=== PATIENT | female | born 1935 | race Caucasian/White ===

== ENCOUNTER 2016-04-06 15:15 | Emergency (ER) | payer MEDICARE, OTHER ==
[~2016-04-06] VITALS: Ht 162.6 cm; Wt 52.5 kg
[2016-04-06 15:42] VITALS: BP 158/93; PULSE 94; RESP 16; TEMP 99.2; O2SAT 98
[2016-04-06] MEDS ORDERED: SODIUM CHLORIDE 0.9% FLUSH 5 ML FLUSH IVF PRN (16:15)
--- NOTE | 2016-04-06 16:15 | PD ---
HPI Chief Complaint: General Weakness Time Seen by Provider: 15:59 Travel History International Travel<30 days: No Contact w/Intl Traveler<30days: No Traveled to known affect area: No History of Present Illness HPI 80-year-old female with history of hypertension here for evaluation of generalized malaise and generalized weakness. The patient flew into [place] yesterday from [place], and plans to stay here for 10 days with her friend/ cousin. At around noon today the patient noted that she wasn't feeling well. She decided to eat lunch even though she wasn't hungry. She has somewhat of a postnasal drip. She denies cough. No fevers. No nausea or vomiting. No abdominal pain. No chest pain or dyspnea. PFSH Past Medical History Glaucoma: Yes Hypertension: Yes Influenza Vaccination: Yes ?: Not LMP: MENOPAUSAL Past Surgical History Abdominal Surgery: Yes (PERFORATED DUODENUM) Eye Surgery: Yes (CATARACTS) Social History Alcohol Use: Yes (1-2 ELENITA EVENING) Tobacco Use: No Substance Use: No Allergies-Medications (Allergen,Severity, Reaction): Coded Allergies: No Known Allergies (Unverified , 04/06/16) Reported Meds & Prescriptions Reported Meds & Active Scripts Active Reported Trusopt Opth Drops (Dorzolamide HCl) 2% Soln 1 Drop EACH EYE TID Hydrochlorothiazide 25 Mg Tab 25 Mg PO DAILY Review of Systems Except as stated in HPI: all other systems reviewed are Neg Physical Exam Narrative GENERAL: Well-developed, well-nourished, comfortable, no acute distress. SKIN: Warm and dry. No rash. HEAD: Atraumatic. Normocephalic. EYES: Pupils equal and round. No scleral icterus. No injection or drainage. ENT: No nasal bleeding or discharge. Mucous membranes pink and moist. Bilateral hearing aids in place. NECK: Trachea midline. No JVD. No nuchal rigidity. CARDIOVASCULAR: Regular rate and rhythm. RESPIRATORY: No accessory muscle use. Clear to auscultation. Breath sounds equal bilaterally. GASTROINTESTINAL: Abdomen soft, non-tender, nondistended. MUSCULOSKELETAL: No obvious deformities. No clubbing. No cyanosis. No edema. NEUROLOGICAL: Awake and alert. No obvious cranial nerve deficits. Motor grossly within normal limits. Normal speech. PSYCHIATRIC: Appropriate mood and affect; insight and judgment normal. Data Data Last Documented VS Vital Signs Date Time Temp Pulse Resp B/P Pulse Ox O2 Delivery O2 Flow Rate FiO2 04/06/16 17:00 78 14 173/80 97 04/06/16 15:42 99.2 Orders Complete Blood Count With Diff (04/06/16 16:09) Comprehensive Metabolic Panel (04/06/16 16:09) Urinalysis - C+S If Indicated (04/06/16 16:09) Iv Access Insert/Monitor (04/06/16 16:09) Ecg Monitoring (04/06/16 16:09) Oximetry (04/06/16 16:09) Sodium Chloride 0.9% Flush (Ns Flush) (04/06/16 16:15) Electrocardiogram (04/06/16 16:09) Chest, Single Ap (04/06/16 16:09) Influenzae A/B Antigen (04/06/16 16:09) Thyroid Stimulating Hormone (04/06/16 16:09) Ckmb (Isoenzyme) Profile (04/06/16 16:35) Troponin I (04/06/16 16:35) Labs Laboratory Tests Test 04/06/16 04/06/16 16:15 16:50 White Blood Count 5.4 TH/MM3 Red Blood Count 3.92 MIL/MM3 Hemoglobin 12.7 GM/DL Hematocrit 37.1 % Mean Corpuscular Volume 94.7 FL Mean Corpuscular Hemoglobin 32.5 PG Mean Corpuscular Hemoglobin 34.3 % Concent Red Cell Distribution Width 11.2 % Platelet Count 268 TH/MM3 Mean Platelet Volume 7.7 FL Neutrophils (%) (Auto) 67.0 % Lymphocytes (%) (Auto) 21.0 % Monocytes (%) (Auto) 11.1 % Eosinophils (%) (Auto) 0.5 % Basophils (%) (Auto) 0.4 % Neutrophils # (Auto) 3.7 TH/MM3 Lymphocytes # (Auto) 1.1 TH/MM3 Monocytes # (Auto) 0.6 TH/MM3 Eosinophils # (Auto) 0.0 TH/MM3 Basophils # (Auto) 0.0 TH/MM3 CBC Comment DIFF FINAL Differential Comment Sodium Level 133 MEQ/L Potassium Level 3.6 MEQ/L Chloride Level 99 MEQ/L Carbon Dioxide Level 25.1 MEQ/L Anion Gap 9 MEQ/L Blood Urea Nitrogen 17 MG/DL Creatinine 0.80 MG/DL Estimat Glomerular Filtration 69 ML/MIN Rate Random Glucose 90 MG/DL Calcium Level 8.4 MG/DL Total Bilirubin 0.8 MG/DL Aspartate Amino Transf 20 U/L (AST/SGOT) Alanine Aminotransferase 16 U/L (ALT/SGPT) Alkaline Phosphatase 37 U/L Total Creatine Kinase 96 U/L Troponin I LESS THAN 0.02 NG/ML Total Protein 7.1 GM/DL Albumin 3.9 GM/DL Thyroid Stimulating Hormone 3.870 uIU/ML 3rd Gen Urine Collection Type CLEAN CATCH Urine Color YELLOW Urine Turbidity CLEAR Urine pH 7.0 Urine Specific [place] 1.011 Urine Protein NEG mg/dL Urine Glucose (UA) NEG mg/dL Urine Ketones NEG mg/dL Urine Occult Blood NEG Urine Nitrite NEG Urine Bilirubin NEG Urine Leukocyte Esterase TRACE Urine WBC 0-2 /hpf Microscopic Urinalysis Comment CULT NOT INDICATED Urine Collection Time 1650 MDM Medical Decision Making Medical Screen Exam Complete: Yes Emergency Medical Condition: Yes Interpretation(s) EKG: Sinus, rate 74, left axis deviation, normal intervals, Q waves in anterior and septal leads, no acute ischemic abnormality. Differential Diagnosis Influenza, viral illness, pneumonia, dehydration, UTI, PE unlikely Narrative Course Initial vital signs show heart rate 94, blood pressure 158/93, pulse ox 98% on room air, oral temp of 99.2F. Repeat vital signs show heart rate 78, blood pressure 173/80, pulse ox 97% on room air. CBC is unremarkable. CMP is unremarkable. Cardiac enzymes are negative. TSH is 3.87. UA shows trace leukocyte esterase, not suggestive of UTI. Influenza is negative. Chest x-ray shows no acute disease. The patient was made aware of all findings. She is resting comfortably. She is awake and alert, no distress. No focal deficits on exam. She is stable for discharge home with outpatient follow-up with her primary care physician when she returns to [place]. Her friend/cousins were present in the room and will take care of her at home. They were all informed on when she should return to the emergency department. The patient verbalizes understanding and agreement with plan. Diagnosis Primary Impression: Generalized weakness Referrals: Primary Care Physician 3 days Additional Instructions: Follow-up with your primary care physician when you return home. Stay hydrated with plenty of fluids. Return to the emergency department for worsening symptoms or any other concerns. Disposition: 01 DISCHARGE HOME Condition: Stable Paz,Stewart N MD Apr 06, 2016 16:15
[2016-04-06 16:36] LABS: AUTOMATED NEUTROPHIL # 3.7 TH/MM3 (1.8-7.7); BASOPHIL % 0.4 % (0.0-2.0); EOSINOPHIL % 0.5 % (0.0-4.0); HEMATOCRIT 37.1 % (35.0-46.0); HEMO FLAGS DIFF FINAL; LYMPHOCYTE # 1.1 TH/MM3 (1.0-4.8); MEAN CELL VOLUME 94.7 FL (80.0-100.0); MEAN CORPUSCULAR HEMOGLOBIN 32.5 PG (27.0-34.0); MEAN CORPUSCULAR HGB CONC 34.3 % (32.0-36.0); MONO % 11.1 % (0.0-8.0); PLATELET COUNT 268 TH/MM3 (150-450); RED BLOOD COUNT 3.92 MIL/MM3 (4.00-5.30); RED CELL DISTRIBUTION WIDTH 11.2 % (11.6-17.2); WHITE BLOOD COUNT 5.4 TH/MM3 (4.0-11.0)
[2016-04-06 16:46] LABS: CHLORIDE 99 MEQ/L (98-107); POTASSIUM 3.6 MEQ/L (3.5-5.1); SODIUM (NA) 133 MEQ/L (136-145)
--- NOTE | 2016-04-06 16:46 | RADHPO ---
EXAM DATE/TIME: 04/06/2016 16:19 [facility] COMPARISON: No previous studies available for comparison. INDICATIONS : Cough. MEDICAL HISTORY : None. SURGICAL HISTORY : None. ENCOUNTER: Initial ACUITY: 1 day PAIN SCORE: 0/10 LOCATION: Bilateral chest FINDINGS: A single view of the chest demonstrates the lungs to be symmetrically aerated without evidence of mas s, infiltrate or effusion. The cardiomediastinal contours are unremarkable. Osseous structures are intact. CONCLUSION: No acute disease. Juan Luis Fox MD FACR on April 06, 2016 at 16:45 Board Certified Radiologist. This report was verified electronically.
[2016-04-06 16:50] LABS: ANION GAP 9 MEQ/L (5-15); BICARBONATE 25.1 MEQ/L (21.0-32.0)
[2016-04-06 16:51] LABS: BLOOD UREA NITROGEN 17 MG/DL (7-18)
[2016-04-06 16:53] LABS: ALT (GPT) 16 U/L (10-53); AST (GOT) 20 U/L (15-37)
[2016-04-06 16:54] LABS: GLOMERULAR FILTRATION RATE 69 ML/MIN (>89)
[2016-04-06 16:55] LABS: TOTAL BILIRUBIN ADULT 0.8 MG/DL (0.2-1.0)
[2016-04-06 16:56] LABS: ALKALINE PHOSPHATASE 37 U/L (45-117)
[2016-04-06 17:00] VITALS: BP 173/80; PULSE 78; RESP 14; O2SAT 97
[2016-04-06 17:05] LABS: BLOOD, URINE NEG (NEG); GLUCOSE,URINE NEG (NEG); KETONE, URINE NEG (NEG); NITRITE,URINE NEG (NEG)
[2016-04-06 17:19] LABS: CREATINE KINASE 96 U/L (26-192)
[2016-04-06 17:33] LABS: METHOD OF COLLECTION CLEAN CATCH
[2016-04-06 17:34] LABS: COMMENT (UR) CULT NOT INDICATED; CULTURE IF INDICATED CULT NOT INDICATED; URINE COLOR YELLOW (YELLW/STRAW); WBC, URINE 0-2 /hpf (0-5)
[2016-04-06] MEDS ORDERED: HYDR25TA5 PO (17:43)
[2016-04-06] MEDS ORDERED: TRUS2SOL EACH EYE (17:43)
--- NOTE | 2016-04-07 05:03 | EKG ---
Date Performed: 04/06/2016 Time Performed: 16:30:02 PTAGE: 80 years EKG: Sinus rhythm Possible anteroseptal infarct - age undetermined Cannot rule out inferior myocardial infarction Abno rmal ECG NO PREVIOUS TRACING DOCTOR: Brock Aguila Interpretating Date/Time 04/07/2016 05:02:41
== END 2016-04-06 18:35 | disposition home or self-care (01) ==
LOC: PHED 15:15
DX: R53.1 Weakness (principal); I10 Essential (primary) hypertension
CPT/HCPCS: 71010; 80053; 81001; 82550; 84443; 84484; 85025; 87804; 93005

== ENCOUNTER 2016-04-07 11:39 | Emergency (ER) | payer MEDICARE, OTHER ==
[~2016-04-07] VITALS: Ht 165.1 cm; Wt 52.7 kg
[2016-04-07] VITALS (7 sets, daily range): BP systolic 123–150; BP diastolic 78–83; PULSE 69–80; RESP 16–18; TEMP 97.9; O2SAT 96–99
[~2016-04-07 11:39] MED LIST: HYDR25TA5 PO; TRUS2SOL EACH EYE
[2016-04-07] MEDS ORDERED: SODIUM CHLORIDE 0.9% FLUSH 5 ML FLUSH IVF PRN (13:00)
[2016-04-07] MEDS ORDERED: SODIUM CHLORID 0.9% 500 ML INJ 500 ML IV ONE (13:00)
--- NOTE | 2016-04-07 13:20 | RADHPO ---
EXAM DATE/TIME: 04/07/2016 13:10 [facility] COMPARISON: CHEST SINGLE AP, April 06, 2016, 16:19. INDICATIONS : Syncopal episode, weakness, shakes, headaches. MEDICAL HISTORY : Hypertension. SURGICAL HISTORY : None. ENCOUNTER: Initial ACUITY: 2 days PAIN SCORE: 0/10 LOCATION: chest FINDINGS: A single view of the chest demonstrates the lungs to be symmetrically aerated without evidence of mas s, infiltrate or effusion. Atherosclerotic changes are again noted in the aorta with calcification. The cardiomediastinal contours are unremarkable. Osseous structures are intact. There are multiple o verlying electrocardiogram leads. CONCLUSION: No acute disease. Dwaine Meyers MD on April 07, 2016 at 13:17 Board Certified Radiologist. This report was verified electronically.
--- NOTE | 2016-04-07 13:22 | RADHPO ---
EXAM DATE/TIME: 04/07/2016 13:10 [facility] COMPARISON: No previous studies available for comparison. INDICATIONS : Cephalgia. General weakness. RADIATION DOSE: 65.19 CTDIvol (mGy) MEDICAL HISTORY : Hypertension. SURGICAL HISTORY : None. ENCOUNTER: Initial ACUITY: 1 day PAIN SCALE: 1/10 LOCATION: cranial TECHNIQUE: Multiple contiguous axial images were obtained of the head. Using automated exposure control and adj ustment of the mA and/or kV according to patient size, radiation dose was kept as low as reasonably a chievable to obtain optimal diagnostic quality images. FINDINGS: CEREBRUM: The ventricles are normal for age. No evidence of midline shift, mass lesion, hemorrhage or acute in farction. No extra-axial fluid collections are seen. POSTERIOR FOSSA: The cerebellum and brainstem are intact. The 4th ventricle is midline. The cerebellopontine angle i s unremarkable. EXTRACRANIAL: The visualized portion of the orbits is intact. SKULL: The calvaria is intact. No evidence of skull fracture. CONCLUSION: Unremarkable exam. Dwaine Meyers MD on April 07, 2016 at 13:20 Board Certified Radiologist. This report was verified electronically.
[2016-04-07 13:34] LABS: AUTOMATED NEUTROPHIL # 3.2 TH/MM3 (1.8-7.7); BASOPHIL % 0.9 % (0.0-2.0); EOSINOPHIL % 0.4 % (0.0-4.0); HEMATOCRIT 37.6 % (35.0-46.0); HEMO FLAGS DIFF FINAL; LYMPH % 23.4 % (9.0-44.0); LYMPHOCYTE # 1.2 TH/MM3 (1.0-4.8); MEAN CELL VOLUME 94.1 FL (80.0-100.0); MEAN CORPUSCULAR HEMOGLOBIN 32.2 PG (27.0-34.0); MEAN CORPUSCULAR HGB CONC 34.2 % (32.0-36.0); MONO % 11.4 % (0.0-8.0); NEUT % 63.9 % (16.0-70.0); PLATELET COUNT 274 TH/MM3 (150-450); RED CELL DISTRIBUTION WIDTH 11.2 % (11.6-17.2)
[2016-04-07 13:41] LABS: CHLORIDE 96 MEQ/L (98-107); POTASSIUM 3.9 MEQ/L (3.5-5.1); SODIUM (NA) 130 MEQ/L (136-145)
[2016-04-07 13:45] LABS: ANION GAP 8 MEQ/L (5-15); BICARBONATE 25.8 MEQ/L (21.0-32.0); BLOOD UREA NITROGEN 15 MG/DL (7-18); MAGNESIUM 1.8 MG/DL (1.5-2.5)
[2016-04-07 13:46] LABS: APTT (PATIENT) 27.3 SEC (24.3-30.1); PROTHROMBIN TIME - PATIENT 11.2 SEC (9.8-11.6)
[2016-04-07 13:48] LABS: ALT (GPT) 15 U/L (10-53); AST (GOT) 18 U/L (15-37); GLOMERULAR FILTRATION RATE 69 ML/MIN (>89)
[2016-04-07 13:49] LABS: TOTAL BILIRUBIN ADULT 0.9 MG/DL (0.2-1.0)
[2016-04-07 13:50] LABS: ALKALINE PHOSPHATASE 34 U/L (45-117)
[2016-04-07 13:52] LABS: CREATINE KINASE 67 U/L (26-192)
--- NOTE | 2016-04-07 14:01 | PD ---
HPI Chief Complaint: General Weakness Time Seen by Provider: 12:47 Travel History International Travel<30 days: No Contact w/Intl Traveler<30days: No Traveled to known affect area: No History of Present Illness HPI Patient is a 80 year old female with history of hypertension who returns to the ER with c/o of generalized weakness. Patient reports that she was seen in the emergency room yesterday for similar symptoms, reports that she had labs as an x -ray of her chest, reports that "everything was normal." Patient reports that she thought that she had overall generalized weakness as she recently flew from [place] into [place] on Monday and is here for vacation with family members. Patient reports that she left the ER yesterday and did check to get some rest. Reports that she did have some chicken noodle soup last night, reports that she just feels not hungry and tired and just "bad." Reports that today, she has a slight headache rates as a 2 out of 10, reports that she did not take any medications for headache. Reports that she is no vision changes or blurry vision. She denies chest pain or shortness of breath. Patient denies abdominal pain, nausea or vomiting. Patient reports that she had a thorough evaluation yesterday and does not know why she feels so weak. Patient's family at bedside, reports that she does have history of hypertension , reports concerns for possible ACS causing her symptoms. Patient at this point has no nausea or vomiting or chest pain or shortness of breath. No history of coronary artery disease in the past. PFSH Past Medical History Hx Anticoagulant Therapy: Yes (ASA) Glaucoma: Yes Hypertension: Yes Immunizations Current: Yes ?: Not Past Surgical History Abdominal Surgery: Yes (PERFORATED DUODENUM) Eye Surgery: Yes (CATARACTS) Social History Alcohol Use: Yes (1-2 WINE IN EVENING) Tobacco Use: No Substance Use: No Allergies-Medications (Allergen,Severity, Reaction): Coded Allergies: No Known Allergies (Unverified , 04/07/16) Reported Meds & Prescriptions Reported Meds & Active Scripts Active Reported Trusopt Opth Drops (Dorzolamide HCl) 2% Soln 1 Drop EACH EYE TID Hydrochlorothiazide 25 Mg Tab 25 Mg PO DAILY Review of Systems General / Constitutional: No: Fever Eyes: No: Visual changes HENT: Positive: Headaches Cardiovascular: No: Chest Pain or Discomfort Respiratory: No: Shortness of Breath Gastrointestinal: No: Nausea, Vomiting, Abdominal Pain Genitourinary: No: Dysuria Musculoskeletal: Positive: Weakness, No: Pain Skin: No Rash Neurologic: No: Weakness Psychiatric: No: Depression Endocrine: No: Polydipsia Hematologic/Lymphatic: No: Easy Bruising Physical Exam Narrative GENERAL: nad, nontoxic SKIN: Warm and dry. HEAD: Atraumatic. Normocephalic. EYES: Pupils equal and round. No scleral icterus. No injection or drainage. ENT: No nasal bleeding or discharge. Mucous membranes pink and moist. NECK: Trachea midline. No JVD. CARDIOVASCULAR: Regular rate and rhythm. No murmur appreciated. RESPIRATORY: No accessory muscle use. Clear to auscultation. Breath sounds equal bilaterally. GASTROINTESTINAL: Abdomen soft, non-tender, nondistended. Hepatic and splenic margins not palpable. MUSCULOSKELETAL: No obvious deformities. No clubbing. No cyanosis. No edema. NEUROLOGICAL: Awake and alert. No obvious cranial nerve deficits. Motor grossly within normal limits. Normal speech. Cranial nerves to 12 grossly intact with no obvious deficits PSYCHIATRIC: Appropriate mood and affect; insight and judgment normal. Data Data Last Documented VS Vital Signs Date Time Temp Pulse Resp B/P Pulse Ox O2 Delivery O2 Flow Rate FiO2 04/07/16 16:00 75 16 97 Room Air 04/07/16 15:59 123/79 04/07/16 11:49 97.9 Orders Electrocardiogram (04/07/16 12:56) Ckmb (Isoenzyme) Profile (04/07/16 12:56) Complete Blood Count With Diff (04/07/16 12:56) Comprehensive Metabolic Panel (04/07/16 12:56) Magnesium (Mg) (04/07/16 12:56) Prothrombin Time / Inr (Pt) (04/07/16 12:56) Act Partial Throm Time (Ptt) (04/07/16 12:56) Troponin I (04/07/16 12:56) Chest, Single Ap (04/07/16 12:56) Ecg Monitoring (04/07/16 12:56) Bilateral Bp Monitoring (04/07/16 12:56) Iv Access Insert/Monitor (04/07/16 12:56) Oximetry (04/07/16 12:56) Sodium Chloride 0.9% Flush (Ns Flush) (04/07/16 13:00) Sodium Chlorid 0.9% 500 Ml Inj (Ns 500 M (04/07/16 13:00) Ct Brain W/O Iv Contrast(Rout) (04/07/16 12:56) Sodium Chlor 0.9% 1000 Ml Inj (Ns 1000 M (04/07/16 16:00) Labs Laboratory Tests Test 04/07/16 13:25 White Blood Count 5.0 TH/MM3 Red Blood Count 4.00 MIL/MM3 Hemoglobin 12.9 GM/DL Hematocrit 37.6 % Mean Corpuscular Volume 94.1 FL Mean Corpuscular Hemoglobin 32.2 PG Mean Corpuscular Hemoglobin 34.2 % Concent Red Cell Distribution Width 11.2 % Platelet Count 274 TH/MM3 Mean Platelet Volume 7.3 FL Neutrophils (%) (Auto) 63.9 % Lymphocytes (%) (Auto) 23.4 % Monocytes (%) (Auto) 11.4 % Eosinophils (%) (Auto) 0.4 % Basophils (%) (Auto) 0.9 % Neutrophils # (Auto) 3.2 TH/MM3 Lymphocytes # (Auto) 1.2 TH/MM3 Monocytes # (Auto) 0.6 TH/MM3 Eosinophils # (Auto) 0.0 TH/MM3 Basophils # (Auto) 0.0 TH/MM3 CBC Comment DIFF FINAL Differential Comment Prothrombin Time 11.2 SEC Prothromb Time International 1.0 RATIO Ratio Activated Partial 27.3 SEC Thromboplast Time Sodium Level 130 MEQ/L Potassium Level 3.9 MEQ/L Chloride Level 96 MEQ/L Carbon Dioxide Level 25.8 MEQ/L Anion Gap 8 MEQ/L Blood Urea Nitrogen 15 MG/DL Creatinine 0.80 MG/DL Estimat Glomerular Filtration 69 ML/MIN Rate Random Glucose 90 MG/DL Calcium Level 8.7 MG/DL Magnesium Level 1.8 MG/DL Total Bilirubin 0.9 MG/DL Aspartate Amino Transf 18 U/L (AST/SGOT) Alanine Aminotransferase 15 U/L (ALT/SGPT) Alkaline Phosphatase 34 U/L Total Creatine Kinase 67 U/L Troponin I LESS THAN 0.02 NG/ML Total Protein 6.9 GM/DL Albumin 3.9 GM/DL MDM Medical Decision Making Medical Screen Exam Complete: Yes Emergency Medical Condition: Yes Interpretation(s) EKG at 1338: Normal sinus rhythm at 68bpm, qt/qtc: 392/406, no acute changes - no change from ekg from yesterday Dr Aguila did read yesterdays ekg: possible anteroseptal infarct - age undetermined, cannot rule out inferior NM Vital Signs Date Time Temp Pulse Resp B/P Pulse Ox O2 Delivery O2 Flow Rate FiO2 04/07/16 12:49 75 16 100 Room Air 04/07/16 11:49 97.9 80 18 142/82 99 Differential Diagnosis ACS, CVA, intracranial hemorrhage, arrhythmia, electrolyte abnormality, dehydration Narrative Course Patient is a 80-year-old female who presents to emergency room with complaints of generalized weakness. Patient reports that she presents to emergency room after traveling from [place] to [place] on Monday. Reports that she has generalized symptoms and has no overt complaints except for mild headache which are similar to her previous headaches in the past. Patient's neuro exam is benign, CT head ordered for evaluation of possible intracranial hemorrhage versus mass which could cause her symptoms. CBC, BMP, cardiac enzymes also ordered for evaluation of her symptoms. Patient does have an abnormal EKG with possible anterior septal infarct which is age indeterminant, patient with no history of coronary disease or history of NM in the past. Consideration for possible cardiac etiology for symptoms Patient has been placed on a vehicle monitor technician, will continue to monitor patient. Patient re-evaluated, reports that she is not feeling any better. I reviewed all labs and studies with her and patient and family requested observation overnight. Discussed with patient and family that I have no grounds to admit to her to the hospital. Patient and family request that I call medicine service to see if i can have her admitted to hospital. Discussed that I will try to get her admitted overnight. Call made to to review case. Patient did not meet any observation criteria or admission criteria, requests the patient follow up with her primary care doctor as outpatient and refuses admission at this time. I reviewed my conversation with patient and family. Signs and symptoms of when to return to the emergency room was reviewed with patient and family. Patient will return to ER since return or persist Diagnosis Primary Impression: Generalized muscle weakness Additional Impression: Hyponatremia Patient Instructions: General Instructions Additional Instructions: Please follow-up with your primary care doctor as soon as possible Return to emergency room as needed Please return to emergency room if symptoms progress or worsen Disposition: 01 DISCHARGE HOME Condition: Stable Sunitha Sullivan DO Apr 07, 2016 14:01
[2016-04-07] MEDS ORDERED: SODIUM CHLOR 0.9% 1000 ML INJ 1,000 ML IV ONE (16:00)
--- NOTE | 2016-04-08 20:41 | EKG ---
Date Performed: 04/07/2016 Time Performed: 13:38:42 PTAGE: 80 years EKG: Sinus rhythm Inferior infarct - age undetermined Possible anteroseptal infarct - age undetermined When compared t o previous tracing, no significant change. Abnormal ECG PREVIOUS TRACING : 04/06/2016 16.30 DOCTOR: Arturo Gordillo Interpretating Date/Time 04/08/2016 20:39:53
== END 2016-04-07 17:29 | disposition home or self-care (01) ==
LOC: PHED 11:39
DX: M62.81 Muscle weakness (generalized) (principal); E87.1 Hypo-osmolality and hyponatremia; Z79.82 Long term (current) use of aspirin; I10 Essential (primary) hypertension
CPT/HCPCS: 70450; 71010; 80053; 82550; 83735; 84484; 85025; 85610; 85730; 93005; 96360; 96361; 99285; J7030; J7040

== ENCOUNTER 2016-04-10 03:29 | Emergency (ER) | payer MEDICARE, OTHER ==
[~2016-04-10] VITALS: Ht 165.1 cm; Wt 52.4 kg
[2016-04-10 03:38] VITALS: BP 134/82; PULSE 90; RESP 18; TEMP 98.5; O2SAT 98
[2016-04-10] MEDS ORDERED: ASPI1TAB69 PO (04:07)
[2016-04-10 04:10] VITALS: O2SAT 97
[2016-04-10] MEDS ORDERED: ONDANSETRON HCL 4 MG/2 ML VIAL IVP ONE (04:15)
[2016-04-10] MEDS ORDERED: SODIUM CHLORIDE 0.9% FLUSH 5 ML FLUSH IVF PRN (04:15)
[2016-04-10 04:27] LABS: AUTOMATED NEUTROPHIL # 3.2 TH/MM3 (1.8-7.7); BASOPHIL % 0.6 % (0.0-2.0); EOSINOPHIL # 0.1 TH/MM3 (0-0.4); EOSINOPHIL % 1.2 % (0.0-4.0); HEMATOCRIT 37.6 % (35.0-46.0); HEMO FLAGS DIFF FINAL; LYMPH % 13.8 % (9.0-44.0); LYMPHOCYTE # 0.7 TH/MM3 (1.0-4.8); MEAN CELL VOLUME 94.2 FL (80.0-100.0); MEAN CORPUSCULAR HEMOGLOBIN 31.9 PG (27.0-34.0); MEAN CORPUSCULAR HGB CONC 33.8 % (32.0-36.0); NEUT % 67.4 % (16.0-70.0); PLATELET COUNT 251 TH/MM3 (150-450); RED BLOOD COUNT 3.99 MIL/MM3 (4.00-5.30); RED CELL DISTRIBUTION WIDTH 11.3 % (11.6-17.2); WHITE BLOOD COUNT 4.8 TH/MM3 (4.0-11.0)
[2016-04-10 04:28] LABS: BLOOD, URINE NEG (NEG); GLUCOSE,URINE NEG (NEG); KETONE, URINE TRACE mg/dL (NEG); NITRITE,URINE NEG (NEG); PH, URINE 7.5 (5.0-8.5)
[2016-04-10 04:30] VITALS: BP 149/80; PULSE 70; RESP 16; O2SAT 98
[2016-04-10 04:32] LABS: URINE COLOR STRAW (YELLW/STRAW)
[2016-04-10 04:34] LABS: BACTERIA, URINE RARE /hpf; CHLORIDE 96 MEQ/L (98-107); COMMENT (UR) CULT NOT INDICATED; CULTURE IF INDICATED CULT NOT INDICATED; RBC, URINE 0-2 /hpf (0-3); SODIUM (NA) 132 MEQ/L (136-145); TRIPLE PHOSPHATE CRYSTAL,URINE FEW /hpf
[2016-04-10 04:38] LABS: ANION GAP 11 MEQ/L (5-15); BICARBONATE 24.7 MEQ/L (21.0-32.0); BLOOD UREA NITROGEN 11 MG/DL (7-18); MAGNESIUM 1.6 MG/DL (1.5-2.5)
[2016-04-10 04:39] LABS: APTT (PATIENT) 27.9 SEC (24.3-30.1); PROTHROMBIN TIME - PATIENT 10.9 SEC (9.8-11.6)
[2016-04-10 04:40] LABS: POTASSIUM 3.7 MEQ/L (3.5-5.1)
[2016-04-10 04:41] LABS: ALT (GPT) 14 U/L (10-53); AST (GOT) 23 U/L (15-37); GLOMERULAR FILTRATION RATE 79 ML/MIN (>89)
[2016-04-10 04:42] LABS: TOTAL BILIRUBIN ADULT 0.8 MG/DL (0.2-1.0)
[2016-04-10 04:43] LABS: ALKALINE PHOSPHATASE 37 U/L (45-117)
[2016-04-10 04:55] VITALS: BP_SYST 133; BP_SYST 140; BP_SYST 151; BP_DIAS 72; BP_DIAS 75; RESP 18
--- NOTE | 2016-04-10 05:08 | RADHPO ---
EXAM DATE/TIME: 04/10/2016 04:34 [facility] COMPARISON: CHEST SINGLE AP, April 07, 2016, 13:10. INDICATIONS : Shortness of breath. MEDICAL HISTORY : Hypertension. SURGICAL HISTORY : None. ENCOUNTER: Initial ACUITY: 1 day PAIN SCORE: 5/10 LOCATION: Bilateral chest FINDINGS: No infiltrates seen. No pleural effusion or pneumothorax. Heart size stable, within normal limits. Th oracic aorta is tortuous and atherosclerotic. CONCLUSION: No significant change. No acute cardiopulmonary disease demonstrated. Filemon Del Cid MD on April 10, 2016 at 5:05 Board Certified Radiologist. This report was verified electronically.
[2016-04-10 05:30] VITALS: BP 133/75; PULSE 72; RESP 18; O2SAT 98
--- NOTE | 2016-04-10 05:46 | PD ---
HPI Chief Complaint: General Weakness Time Seen by Provider: 04:03 Travel History International Travel<30 days: No Contact w/Intl Traveler<30days: No Traveled to known affect area: No History of Present Illness HPI 80-year-old female visiting from out of town since Monday presents to the emergency department for complaint of persistent generalized weakness. Patient is reportedly visiting with friends here while she is visiting from [place]. Patient has history of hypertension and remote history of duodenal perforation. Agent on Monday upon arrival noted that she had generalized weakness had some mild low-grade temperature elevation and fatigue. Patient was brought to the emergency department where she was assessed and had an EKG that showed age-indeterminate anteroseptal QS pattern essentially normal lab values and mildly elevated TSH. Patient was discharged to home with recommended follow-up with her primary care provider which return to [place]. Patient continued to complain of feeling poorly and returned again to the emergency department on or again she underwent EKG which showed no new changes lab values which were again grossly within normal range and also underwent a CT brain noncontrast which revealed no acute abnormality. Patient was able to be discharged to home and felt well reportedly on Monday with normal activity and normal dietary intake and awakened on Monday reportedly feeling well and then as the morning progressed it isn't notice again recurrent generalized weakness and fatigue. No fever no chills while nausea no vomiting no chest pain no pleuritic chest pain no shortness of breath no referred neck jaw back shoulder arm pain abdominal pain no flank pain no diarrhea no constipation no dysuria no frequency no urgency no new balance disturbance no new upper or lower extremity numbness tingling or weakness no skin rash no joint pain or swelling. Patient continued to not be able to sleep and again her friends return her now to the emergency department for further evaluation. Patient states that she just can't sleep and she just feels not right. Patient denies any discomfort or pain anywhere patient reports that earlier in the day she did experience some nausea and felt funny in her epigastric region. Patient denies pain in the abdomen. Patient rates overall discomfort 0/10 in intensity. Patient's had no fall no near fall no near- syncope or syncope. PFSH Past Medical History Narrative Medical Hypertension, daily aspirin use, remote duodenal ulcer/perforation with surgical repair glaucoma macular degeneration no tobacco use nursing notes reviewed Hx Anticoagulant Therapy: Yes (81mg Aspirin) Diminished Hearing: Yes (BILATERAL HEARING AIDS) Glaucoma: Yes Hypertension: Yes Medical other: Yes (Macular degeneration right eye ) Immunizations Current: Yes Tetanus Vaccination: > 5 Years Past Surgical History Abdominal Surgery: Yes (PERFORATED DUODENUM) Eye Surgery: Yes (CATARACTS) Social History Alcohol Use: Yes (Occasionally) Tobacco Use: No Substance Use: No Allergies-Medications (Allergen,Severity, Reaction): Coded Allergies: No Known Allergies (Unverified , 04/10/16) Reported Meds & Prescriptions Reported Meds & Active Scripts Active Xanax (Alprazolam) 0.25 Mg Tab 0.25 Mg PO QHS PRN Zofran Odt (Ondansetron Odt) 4 Mg Tab 4 Mg SL Q6HR PRN Reported Aspirin 81 Mg Tabdr 81 Mg PO DAILY Trusopt Opth Drops (Dorzolamide HCl) 2% Soln 1 Drop EACH EYE TID Hydrochlorothiazide 25 Mg Tab 25 Mg PO DAILY Review of Systems Except as stated in HPI: all other systems reviewed are Neg General / Constitutional: No: Fever, Chills Eyes: No: Diploplia, Blurred Vision, Photophobia, Visual changes HENT: No: Headaches, Vertigo, Lightheadedness, Sore Throat, Congestion, Neck Stiffness, Neck Pain Cardiovascular: No: Chest Pain or Discomfort, Palpitations, Diaphoresis, Syncope, Dyspnea on exertion, Edema Respiratory: No: Cough, Shortness of Breath, Orthopnea, Pleuritic Pain Gastrointestinal: Positive: Nausea, No: Vomiting, Diarrhea, Abdominal Pain, Hematemesis, Hematochezia, Loss of Appetite Genitourinary: No: Urgency, Frequency, Dysuria, Hematuria, Hesitancy, Incontinence, Flank Pain Musculoskeletal: No: Myalgias, Arthralgias, Limited ROM, Weakness, Edema Skin: No Rash Neurologic: Positive: Weakness, No: Dizziness, Syncope, Focal Abnormalities, Coordination Problem, Ataxia, Headache, Change in Mentation, Slurred Speech, Paresthesia, Seizures Psychiatric: Positive: Anxiety, No: Depression Endocrine: No: Heat Intolerance Hematologic/Lymphatic: No: Easy Bruising Physical Exam Narrative GENERAL: Well-developed well-nourished female in no acute distress no respiratory distress; GCS 15. SKIN: Warm and dry. HEAD: Atraumatic. Normocephalic. EYES: Pupils equal and round. Extraocular muscles intact. No scleral icterus. No injection or drainage. ENT: No nasal bleeding or discharge. Mucous membranes pink and moist. Airway is patent. NECK: Trachea midline. No JVD. Supple no meningismus no nuchal rigidity. CARDIOVASCULAR: Regular rate and rhythm. RESPIRATORY: No accessory muscle use. Clear to auscultation. Breath sounds equal bilaterally. GASTROINTESTINAL: Abdomen soft, non-tender, nondistended. Hepatic and splenic margins not palpable. Soft nontender no guarding no rebound to direct palpation to all quadrants epigastrium and periumbilical distribution and no palpable pulsatile mass. MUSCULOSKELETAL: Extremities without clubbing, cyanosis, or edema. No obvious deformities. Bilateral radial and dorsalis pedis pulses 2+ to palpation. NEUROLOGICAL: Awake and alert. GCS 15. No obvious cranial nerve deficits. Motor grossly within normal limits. Five out of 5 muscle strength in the arms and legs. No pronator drift. No limb ataxia. Sensory exam intact. Deep tendon reflexes 2+ and symmetric bilateral upper shoulders and lower extremities. Normal speech. PSYCHIATRIC: Appropriate mood and affect; insight and judgment normal. Data Data Last Documented VS Vital Signs Date Time Temp Pulse Resp B/P Pulse Ox O2 Delivery O2 Flow Rate FiO2 04/10/16 06:15 76 18 149/73 96 Room Air 04/10/16 03:38 98.5 Orders Complete Blood Count With Diff (04/10/16 04:03) Comprehensive Metabolic Panel (04/10/16 04:03) Lipase (04/10/16 04:03) Lactic Acid (04/10/16 04:03) Prothrombin Time / Inr (Pt) (04/10/16 04:03) Act Partial Throm Time (Ptt) (04/10/16 04:03) Urinalysis - C+S If Indicated (04/10/16 04:03) Iv Access Insert/Monitor (04/10/16 04:03) Ecg Monitoring (04/10/16 04:03) Oximetry (04/10/16 04:03) Ondansetron Inj (Zofran Inj) (04/10/16 04:15) Sodium Chloride 0.9% Flush (Ns Flush) (04/10/16 04:15) Electrocardiogram (04/10/16 04:03) Chest, Single Ap (04/10/16 04:03) Troponin I (04/10/16 04:03) Orthostatic Vital Signs (04/10/16 04:03) Magnesium (Mg) (04/10/16 04:03) D-Dimer (04/10/16 04:22) Sodium Chlorid 0.9% 500 Ml Inj (Ns 500 M (04/10/16 06:00) Labs Laboratory Tests Test 04/10/16 04:22 White Blood Count 4.8 TH/MM3 Red Blood Count 3.99 MIL/MM3 Hemoglobin 12.7 GM/DL Hematocrit 37.6 % Mean Corpuscular Volume 94.2 FL Mean Corpuscular Hemoglobin 31.9 PG Mean Corpuscular Hemoglobin 33.8 % Concent Red Cell Distribution Width 11.3 % Platelet Count 251 TH/MM3 Mean Platelet Volume 7.2 FL Neutrophils (%) (Auto) 67.4 % Lymphocytes (%) (Auto) 13.8 % Monocytes (%) (Auto) 17.0 % Eosinophils (%) (Auto) 1.2 % Basophils (%) (Auto) 0.6 % Neutrophils # (Auto) 3.2 TH/MM3 Lymphocytes # (Auto) 0.7 TH/MM3 Monocytes # (Auto) 0.8 TH/MM3 Eosinophils # (Auto) 0.1 TH/MM3 Basophils # (Auto) 0.0 TH/MM3 CBC Comment DIFF FINAL Differential Comment Prothrombin Time 10.9 SEC Prothromb Time International 1.0 RATIO Ratio Activated Partial 27.9 SEC Thromboplast Time D-Dimer Quantitative (PE/DVT) 0.19 MG/L FEU Urine Color STRAW Urine Turbidity SLIGHT Urine pH 7.5 Urine Specific [place] 1.016 Urine Protein TRACE mg/dL Urine Glucose (UA) NEG mg/dL Urine Ketones TRACE mg/dL Urine Occult Blood NEG Urine Nitrite NEG Urine Bilirubin NEG Urine Leukocyte Esterase SMALL Urine RBC 0-2 /hpf Urine WBC 3-5 /hpf Urine Squamous Epithelial 6-8 /hpf Cells Urine Triple Phosphate FEW /hpf Crystals Urine Amorphous Sediment FEW Urine Bacteria RARE /hpf Microscopic Urinalysis Comment CULT NOT INDICATED Sodium Level 132 MEQ/L Potassium Level 3.7 MEQ/L Chloride Level 96 MEQ/L Carbon Dioxide Level 24.7 MEQ/L Anion Gap 11 MEQ/L Blood Urea Nitrogen 11 MG/DL Creatinine 0.71 MG/DL Estimat Glomerular Filtration 79 ML/MIN Rate Random Glucose 92 MG/DL Lactic Acid Level 0.7 mmol/L Calcium Level 8.9 MG/DL Magnesium Level 1.6 MG/DL Total Bilirubin 0.8 MG/DL Aspartate Amino Transf 23 U/L (AST/SGOT) Alanine Aminotransferase 14 U/L (ALT/SGPT) Alkaline Phosphatase 37 U/L Troponin I LESS THAN 0.02 NG/ML Total Protein 7.1 GM/DL Albumin 3.7 GM/DL Lipase 130 U/L MDM Medical Decision Making Medical Screen Exam Complete: Yes Emergency Medical Condition: Yes Medical Record Reviewed: Yes Interpretation(s) CXR:FINDINGS: No infiltrates seen. No pleural effusion or pneumothorax. Heart size stable, within normal limits. Thoracic aorta is tortuous and atherosclerotic. CONCLUSION: No significant change. No acute cardiopulmonary disease demonstrated. Filemon Del Cid MD on April 10, 2016 at 5:05 Board Certified Radiologist. This report was verified electronically. EKG normal sinus rhythm rate 70 QS anteroseptally V1 V2 and V3 no acute ST elevation or injury pattern change noted this is essentially unchanged from EKG of 04/06/16 and 04/07/16 CBC & BMP Diagram 04/10/16 04:22 Lactic acid: 0.7, not elevated Troponin I less than 0.02, not elevated; CK total 37, not elevated Urinalysis leukocyte Estrace rare bacteria culture not indicated Differential Diagnosis Generalized weakness, influenza, viral syndrome, thyroid dysfunction, ACS, arrhythmia, dehydration, electrolyte disturbance, PE, TIA Narrative Course Patient placed on diagnostic cardiac sonographer IV access obtained specimens collected and sent for resulting EKG ordered and orthostatic vital signs obtained Patient has been here on Monday and of this week for same complaint patient reportedly felt well on Monday and then had recurrent symptoms on Monday. Patient's had no fever. Patient's had dry nonproductive cough. Patient's had no chest pain or shortness of breath. Patient's had no pleuritic pain. Patient's had no ataxia of gait. Patient's had no upper or lower extremity numbness tingling or weakness. Patient's had no dysuria frequency or urgency. Patient's had intermittent mild nausea. Patient denies identified to have an age-indeterminate abnormal EKG on previous visits with age- indeterminate anteroseptal changes. Patient here denies any pain other than stating that she is having difficulty sleeping. Patient is visiting from out of state. Patient is returning home on . Patient had extensive workup on and Monday of this week including EKGs lab work CT brain and no specific findings were identified. Patient was noted to have mild hyponatremia. EKG normal sinus rhythm rate 70 QS in V1 through V3 with no acute ST elevation or injury pattern change noted nonspecific Q-wave in lead 3 these changes were noted on prior EKGs to/at bedtime 17 and 04/07/16; CK and troponin values in normal range CBC with automated differential is noted to have a monocytosis by automated differential that was noted as well on Monday and however lactic acid is not elevated at 0.7 Chemistries patient's had persistent mild hyponatremia otherwise values are grossly within normal range electrolytes are found to be essentially within normal limits X-linked d-dimer is not elevated at 0.19 Patient has normal neurologic exam and had a normal CT brain . Patient' s had no new change in mentation headache visual disturbance double vision loss of vision change in speech change in mentation. Pain chest pain upper or lower extremity numbness and weakness or ataxia of gait. Patient's had no loss of motor strength and no loss of sensation. Discussed with patient extensively lab values and with friends with him she is visiting at bedside patient does not desire observation admission for ongoing evaluation in the hospital states her biggest concern is her inability to sleep. Patient has not attempted any Benadryl to assist with sleeping. Patient did have a one-time dose of Tylenol on Monday when she reportedly had a temperature elevation. Patient denies any sinus pressure or drainage or sinus headache. Orthostatic measurements did show variation of almost 20 mmHg sitting to standing and patient given a 500 cc bolus of normal saline. Diagnosis Primary Impression: Generalized weakness Additional Impression: Hyponatremia Referrals: Primary Care Physician 1 week Patient Instructions: General Instructions Additional Instructions: Increase fluid hydration Takes Zofran as prescribed as needed for nausea and/or vomiting Monitor temperature every 4 hours with thermometer and take as needed acetaminophen/Tylenol every 4 hours for fever 100.4F or greater Return to the emergency department for pain fever vomiting or any concerns May use [id number] Benadryl/diphenhydramine per package instructions as needed for mild sleep aid or May use prescription Xanax as prescribed as needed for agitation/anxiety or as a mild sleep aid--- do not take both these medications together do not take either of these medications with alcoholic beverages; be aware that medications that may help as a sleep aid may increased dizziness increases for fall impair reaction time or judgment therefore use with caution and use assistance with attempting to ambulate. Med/Other Pt SpecificInfo: Prescription(s) given Scripts Alprazolam (Xanax)0.25 Mg Tab0.25 Mg PO qhs PRN (ANXIETY AND/OR AGITATION) #3 TAB Ref 0 Prov:Parisa Fair MD 04/10/16 Ondansetron Odt (Zofran Odt)4 Mg Tab4 Mg SL Q6HR PRN (Nausea/Vomiting) #6 TAB Ref 0 Prov:Parisa Fair MD 04/10/16 Disposition: 01 DISCHARGE HOME Condition: Stable Parisa Fair MD Apr 10, 2016 05:46 Parisa Fair MD Apr 10, 2016 05:46
[2016-04-10] MEDS ORDERED: SODIUM CHLORID 0.9% 500 ML INJ 500 ML IV ONE (06:00)
[2016-04-10] MEDS ORDERED: ZOFR4TAB3 SL (06:07)
[2016-04-10] MEDS ORDERED: ALPR.25 PO (06:07)
[2016-04-10 06:15] VITALS: BP 149/73; PULSE 76; RESP 18; O2SAT 96
--- NOTE | 2016-04-11 11:20 | EKG ---
Date Performed: 04/10/2016 Time Performed: 04:44:46 PTAGE: 80 years EKG: Sinus rhythm Lateral ST-T changes are nonspecific Compared to previous tracing, criteria for inferior infarct are no longer met. Abnormal ECG PREVIOUS TRACING : 04/07/2016 13.38 DOCTOR: Rohan Kelsey Interpretating Date/Time 04/11/2016 11:20:46
== END 2016-04-10 06:48 | disposition home or self-care (01) ==
LOC: PHED 03:29
DX: R53.1 Weakness (principal); E87.1 Hypo-osmolality and hyponatremia; R50.9 Fever, unspecified; R53.83 Other fatigue; R94.31 Abnormal electrocardiogram [ECG] [EKG]; I10 Essential (primary) hypertension; Z79.82 Long term (current) use of aspirin
CPT/HCPCS: 71010; 80053; 81001; 83605; 83690; 83735; 84484; 85025; 85379; 85610; 85730; 93005; 96361; 96374; 99285; J2405; J7040